=== PATIENT | female | born 1975 | race Hispanic/Latino ===

== ENCOUNTER → 2018-03-15 | Day surgery (SDC) | payer SELFPAY ==
[~2018-03-15] VITALS: Ht 162.6 cm; Wt 76.2 kg
--- NOTE | 2018-03-15 13:21 | Operative Report ---
Operative/Inv Procedure Report Surgery Date: 03/15/18 Name of Procedure: Abdominoplasty cosmetic Pre-Operative Diagnosis: Lipodystrophy trunk asymptomatic Post-Operative Diagnosis: Same Estimated Blood Loss: scant (150) Surgeon/Milk Pickup Driver: Stan Pérez MD Anesthesia: general endotracheal tube Operative/Procedure Note Note: Patient was counseled extensively in regards to the procedure the alternatives the risks and expected outcomes as relates to her request for surgical intervention to treat asymptomatic lipodystrophy of the trunk via abdominoplasty technique. She was given a SPS informed consent which she has no questions regarding today. Patient was marked in standing position. A measuring tape was used. The areas that would be treated were shown. Patient signed informed consent after additional question and answer. This morning. She was brought to the operating placed supine on table Venodyne boots were placed and general anesthesia was established intravenous antibiotics given. The abdomen was prepped and draped in usual sterile fashion. The lower kael was deepened along the abdominal wall fascia and elevated after circumscribing and releasing the umbilicus. The upper incision was deepened after checking tension. A central tunnel was then made up to the xiphoid in a 2 layer plication was carried out from xiphoid to pubis. The patient was put in the semi-Slade's position and a 3 layer closure was carried out over 2 drains after removing the subfascial fat. 3 layer closure of the umbilicus was also carried out. Steri-Strips placed in the abdominal binder.
== END ==
LOC: STS 01:55
DX: Z41.1 Encounter for cosmetic surgery (principal); E65 Localized adiposity; R42 Dizziness and giddiness
CPT/HCPCS: 81025; J0131; J0690; J1630; J1885; J2250; J2405; Q9968